=== PATIENT | male | born 1975 | race Caucasian/White ===

== ENCOUNTER 2017-03-29 22:38 | Emergency (ER) | payer SELFPAY ==
[2017-03-29] MEDS ORDERED: Tmp-Smz 800 mg-160 mg DS Tab PO STA (23:30)
[2017-03-29] MEDS ORDERED: Tmp-Smz 800 mg-160 mg DS Tab ONE (23:34)
--- NOTE | 2017-03-30 | C.PDOC ---
History Of Present Illness 41 year old male presents to the ED with complaints of pain to the right foot, abscess on the right mauricio, and is seeking detox. Patient states he fell four days ago but denies any head trauma, LOC, hip pain, or other complaints at this time. Time Seen by Provider: 03/29/17 23:11 Chief Complaint (Nursing): Lower Extremity Problem/Injury History Per: Patient History/Exam Limitations: no limitations Onset/Duration Of Symptoms: Days (4 days ) Current Symptoms Are (Timing): Still Present Recent travel outside of the [place]: No - Ankle/Foot Description Of Injury: Fell Past Medical History Reviewed: Historical Data, Nursing Documentation, Vital Signs Vital Signs: Last Vital Signs Temp 97.9 F 03/30/17 05:27 Pulse 78 03/30/17 05:27 Resp 16 03/30/17 05:27 BP 112/60 03/30/17 05:27 Pulse Ox 99 03/30/17 05:31 - Medical History PMH: Hepatitis (C) Family History: States: Unknown Family Hx - Social History Hx Alcohol Use: No Hx Substance Use: Yes (injects into R neck vein area) - Immunization History Hx Tetanus Toxoid Vaccination: No Hx Influenza Vaccination: No Hx Pneumococcal Vaccination: No Review Of Systems Constitutional: Negative for: Fever Musculoskeletal: Positive for: Leg Pain (right lower leg abscess), Foot Pain ( right foot pain). Negative for: Neck Pain, Arm Pain, Back Pain Neurological: Negative for: Headache Physical Exam - Physical Exam Appears: Non-toxic, No Acute Distress, Unkempt Skin: Warm, Dry, No Ecchymosis, Other (small excoriations to the legs bilaterally ) Head: Atraumatic, No Swelling, No Abrasion, No Laceration Neck: Normal ROM, No Midline Cervical Tenderness, No Paracervical Tenderness, Supple Cardiovascular: Rhythm Regular Respiratory: Normal Breath Sounds Extremity: No Normal ROM, Tenderness (mild tenderness to the dorsal aspect of the right foot ), No Pedal Edema, Capillary Refill (good capillary refill ), Swelling (minimal swelling to the right foot ), Other (small localized indurated , tender, erythematous ronaldo sized abscess to the mid-tibial mauricio area with localized erythema. No proximal streaking. ) Extremity: Left: Ligaments Laxity Pulses: Left Dorsalis Pedis: Normal, Right Dorsalis Pedis: Normal Neurological/Psych: Oriented x3 Gait: Unable To Assess (patient refused to leave his bed) ED Course And Treatment O2 Sat by Pulse Oximetry: 99 (room air ) - Other Rad Left Hip X-Ray X-Ray: Interpreted by Me, Viewed By Me Interpretation: No acute findings. No abnormalities. Left Ankle X-Ray X-Ray: Interpreted by Me, Viewed By Me Interpretation: No acute findings. No abnormalities. Left Foot X-Ray X-Ray: Interpreted by Me, Viewed By Me Interpretation: 4th toe fracture of the MTP and PIP. Questionable fracture to the distal 5th toe. Medical Decision Making Medical Decision Making: Patient refused needle aspiration or I&D of abscess on the right mid-tibial mauricio region. Third, fourth, and fifth toes were nhung taped and patient was provided surgical shoe. [id number]:Pt was placed in observation because he is homidiciled as reported by pt. [id number]: Pt is ambulatory in ER and is in NAD, AAOX 3. Observed walking to bathroom while he was here in observation, however at discharge pt is requesting crutches and will not ambulate without crutches. Pt was given crutches and instructed in crutch wqalking by CP. Pt ambulatory with crutches ptrior to leaving the ER . Pt's plan of care d/w pt in [place] by syeda Armstrong and pt does agree and understands follow up and return precautions. Disposition - Disposition Referrals: Podiatry Clinic [Outside] [facility] [Outside] [facility] [Outside] Disposition: HOME/ ROUTINE Disposition Time: 05:25 Condition: STABLE Additional Instructions: Please follow up in Foot clinic Use ortho shoe for support Take advil for pain Return to ER if worse Prescriptions: Cephalexin [cephalexin] 500 mg PO QID #28 cap Ibuprofen [Motrin] 600 mg PO Q6H #20 tab Sulfamethoxazole/Trimethoprim [Bactrim DS 800 mg-160 mg] 1 tab PO BID #14 tab Instructions: Toe Fracture (ED), Abscess (ED) - Clinical Impression Clinical Impression: Toe fracture, right, Leg abscess - Scribe Statement The provider has reviewed the documentation as recorded by the Scribhortencia Maradiaga All medical record entries made by the Scribhortencia were at my direction and personally dictated by me. I have reviewed the chart and agree that the record accurately reflects my personal performance of the history, physical exam, medical decision making, and the department course for this patient. I have also personally directed, reviewed, and agree with the discharge instructions and disposition.
[2017-03-30 03:04] VITALS: RESP 16
[2017-03-30 05:27] VITALS: BP 112/60; PULSE 78; TEMP 97.9
[2017-03-30 05:28] VITALS: O2SAT 99
--- NOTE | 2017-03-30 14:35 | RAD ---
PROCEDURE: Right Foot Radiographs. HISTORY: pain, s/p fall COMPARISON: None. FINDINGS: BONES: Suspected nondisplaced longitudinal fracture of 5th distal phalanx. This is only seen in one view. No other fracture identified. JOINTS: Normal. SOFT TISSUES: Normal. OTHER FINDINGS: None. IMPRESSION: Suspected nondisplaced fracture of 5th distal phalanx, longitudinal.
--- NOTE | 2017-03-30 14:36 | RAD ---
PROCEDURE: Right Ankle Radiographs. HISTORY: pain, s/p fall COMPARISON: None FINDINGS: BONES: Normal. No fracture. JOINTS: Normal. No osteoarthritis. Ankle mortise maintained. Talar dome intact SOFT TISSUES: Normal. OTHER FINDINGS: None. IMPRESSION: Normal right ankle radiographs.
== END 2017-03-30 05:27 | disposition home or self-care (01) ==
LOC: SUPCPDRO 22:38 → C.ER 22:38
DX: S92.501A Displaced unspecified fracture of right lesser toe(s), initial encounter for closed fracture (principal); W19.XXXA Unspecified fall, initial encounter; Y92.9 Unspecified place or not applicable; L02.415 Cutaneous abscess of right lower limb